=== PATIENT | female | born 1985 | race Caucasian/White ===

== ENCOUNTER → 2018-07-09 | Outpatient (CLI) | payer OTHER ==
[~2018-07-09] MED LIST: CALC250T7 PO; CHOL10005 PO; IOPAMIDOL 76% 100 ML INFUS BTL 100 ML ONE; LEVO-3 PO
--- NOTE | 2018-07-09 11:30 | RADIOLOGY IMAGING REPORT ---
FACILITY: [facility] PATIENT NAME: Vida Camacho : 1985 MR: [id number] V: [id number] EXAM DATE: ORDERING PHYSICIAN: USMAN GREY TECHNOLOGIST: [place] [facility] [place]: Vida Camacho : 1985 Visit/Account:[id number] Date of Sevice: 07/09/2018 EXAMINATION: CT neck with IV contrast HISTORY: Thyroid cancer. Thyroidectomy on 04/09/2018. Prior I 31 ablation. TECHNIQUE: Axial soft tissue neck CT with IV contrast. Sagittal and coronal reformats. One of the following dose optimization techniques was utilized in the performance of this exam: Autom ated exposure control; adjustment of the mA and/or kV according to the patient's size; or use of an i terative reconstruction technique. Specific details can be referenced in the facility's radiology C T exam operational policy. CONTRAST: 75 mL of IV [id number] COMPARISON: None available. FINDINGS: Masses/lesions: Postop thyroidectomy. No suspicious mass in the thyroidectomy bed. Airway: Negative. Lymph nodes: Negative. Vessels: Negative. 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 Visualized orbits / brain / paranasal sinuses: Small cyst or polyp in the right maxillary sinus. Rig htward nasal septal deviation. The included intracranial structures are within normal limits. Upper chest: Negative. IMPRESSION: 1. Postop thyroidectomy with no suspicious mass in the thyroidectomy bed. 2. No enlarged or pathologic-appearing lymph nodes in the neck. 3. 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 4. Small cyst or polyp in the right maxillary sinus. Rightward nasal septal deviation. Report Dictated By: Rogelio Rosales MD at 07/09/2018 11:19 AM Report E-Signed By: Rogelio Rosales MD at 07/09/2018 11:26 AM WSN:[id number]
== END ==
LOC: CT 10:45
PROVIDERS: ATTEND Radiology Radiation Oncology
DX: C73 Malignant neoplasm of thyroid gland (principal)
CPT/HCPCS: 70491; Q9967

== ENCOUNTER 2018-07-14 11:57 | Outpatient (RCR) | payer OTHER ==
[2018-05-12 11:55] VITALS: BP 105/75
--- NOTE | 2018-05-12 17:57 | TOBIN CONSULT ---
EVENT DATE: May 12, 2018 CHIEF COMPLAINT/REASON FOR CONSULTATION Newly diagnosed papillary carcinoma of the thyroid gland, status post total thyroidectomy 04/09/18. Patient is here to discuss adjuvant iodine-131 therapy as an adjunct to surgery. HISTORY This is a pleasant 32-year-old lady who is presently living in [place]. She recently had genetic tests performed as her mother was diagnosed with thyroid carcinoma in her 40s. At that time, her mother was living in the [place] area. She subsequently developed pulmonary metastatic disease and is, fortunately, still alive at this time. Her mother was treated with iodine-131 on at least three occasions and external beam radiation therapy as well as surgery. The patient recently had genetic testing since her mother and grandfather were both positive for genetic mutation. The patient was also positive for genetic mutation with the CHEK2. Patient's primary physician performed a recent exam and was suspicious about the thyroid. The patient then had an ultrasound which demonstrated two hypoechoic nodules in the thyroid. That ultrasound was performed in [place] on 02/11/18. In the right lobe, there as a 0.9 x 0.9 x 1 cm nodule which was irregular. In the isthmus of the thyroid, there was a 0.7 x 0.4 x 0.8 cm small hypoechoic area. There was an incidental cyst noted in the upper pole of the left lobe of the gland. The patient subsequently underwent total thyroidectomy by Dr. Shah at the [facility]. That surgery was performed on 04/09/18. On the final pathology, the patient had a multifocal papillary carcinoma. Largest tumor size was 0.8 cm in the right lobe. Margins were focally involved by carcinoma. Sites of involvement were posterior right lobe (less than 2 mm extent). No angiolymphatic invasion. No gross extrathyroidal extension. No abnormal lymph nodes were palpated. The pathologist states the tumor is pT1a NX. Postoperatively, the patient had no complications. She had laboratory studies last week, and her calcium is normal. At this time, she is about four weeks out from surgery. She is on replacement levothyroxine at 125 mcg q. day with a normal TSH. The patient did have thyroglobulin drawn on 05/08/18, which is significantly elevated at 50 with no antibodies. Thyroglobulin is typically in the less than 5 range at this juncture and should ultimately be less than 2. Patient denies any bone pain. No difficulties with swallowing. No change in voice pattern. Patient has been seen by Dr. Leblanc for endocrinology consultation, and that consultation was on 04/28/18. She is on replacement vitamin D and calcium at this time. She will be scheduled for a thyroid ultrasound from his notes at six months in October 2018. The patient is seen for initial discussion of the pros and cons of adjuvant iodine-131 therapy. MEDICATIONS 1. Levothyroxine 125 mcg q. day. 2. Vitamin D 1000 mg q. day. 3. Calcium 1200 mg q. day. ALLERGIES SULFA. PAST MEDICAL HISTORY Thyroid carcinoma with history listed above. PAST SURGICAL HISTORY 1. Total thyroidectomy 04/09/18. 2. 12/13/07. 3. Cyst removal 1991. FAMILY HISTORY Notable for mother with thyroid cancer and colon cancer. SOCIAL HISTORY Patient is . Her is a family practice resident in [place]. They will be moving to [place] in two to three months. She is a [id number] mother of four children ages 4, 6, 8, and 10. Nonsmoker. COMPREHENSIVE REVIEW OF SYSTEMS Entirely negative. Patient does have an IUD in place. PHYSICAL EXAMINATION GENERAL: Pleasant 32-year-old female, medium build. VITALS: BP 105/75, pulse 77, respirations 16, O2 sat 96%. Weight is 169. NECK: No palpable nodularity in the neck. Well-healed surgical scar. No lymphadenopathy noted. LUNGS: Clear bilaterally. HEART: Sounds regular. No audible murmur. ABDOMEN: Soft. No gross organomegaly. NEUROLOGICAL: Intact. IMPRESSION This is 32-year-old female with an intermediate risk thyroid malignancy. She underwent appropriate total thyroidectomy on 04/09/[address] Shah. The adverse features of the tumor include multifocality and microscopic extension into the posterior right lobe with focal involvement at that site. Her other adverse features are an elevated thyroglobulin protein in the 50 range approximately four weeks remote from surgery. RECOMMENDATIONS I reviewed the NCCN most recent updated recommendations from this past year with the patient. I also went through the possible acute late adverse effects associated with iodine-131 therapy. There are rare case reports of leukemia or salivary gland tumors; however, the relative incidence is extremely low. The treatment is generally well tolerated with minor adverse effects, which may include altered taste, decreased salivary flow, or dry eye, although the latter is fairly uncommon as well. The patient states her mother did have some nausea when she received iodine-131, which is quite unusual. I could easily premedicate her with Zofran to prevent that. I suspect the doses were considerably higher. The appropriate doses at this time are in the 30 mCi to 100 mCi range. I will perform further literature review in the next two weeks given the features of her tumor, which I reviewed today, to decide the appropriate dose. For younger patients, typically we favor the 30 mCi of iodine-131 at this time for lymph node-negative patients. Patient will undergo radiation safety instructions for three to five days following treatment. She will meet with her nuclear medicine staff member within the next three weeks. I will get weekly TSH next and have her stop the levothyroxine therapy in the morning. I suspect she will become appropriately hypothyroid within the next two to four weeks with a TSH target of 30, at which point the iodine-131 will be administered. In general, the literature has supported withdrawal of the levothyroxine over the Thyrogen stimulation at least for initial ablation techniques for higher efficacy. Both are acceptable at this time per present NCCN guidelines, although category 2B. All questions were answered to the patient's satisfaction. I will review the treatment details when the patient returns to the office in approximately 2-1/2 weeks. We will make appropriate arrangements for oncology followup when she moves to the [place] area later this year. Thank you for the referral and excellent notes which accompany the patient today for initial consultation. I will have the patient go over her consent form at her next appointment. She will have a whole body metastases scan approximately 10 days after the administration of iodine-131. I will also request a baseline CT scan of the neck and thorax in June after she has received the iodine-131 therapy. Please do not hesitate to call me if there are any questions regarding the above recommendations. MTDD
[2018-05-26 12:52] VITALS: BP 96/71
--- NOTE | 2018-05-27 00:35 | ONCOLOGY FOLLOW UP NOTE ---
EVENT DATE: May 26, 2018 CHIEF COMPLAINT/REASON FOR VISIT Patient is here to go over the details of the iodine-131 therapy as well as review recent laboratory studies and oncology surveillance plan and final staging testing. ONCOLOGY HISTORY 1. Diagnosis of papillary carcinoma of the thyroid gland, status post total thyroidectomy 04/09/18. 2. Multifocal papillary carcinoma appreciated on final pathology. Margins focally involved by carcinoma. Largest tumor size 0.8 cm in the right lobe. Additional 2 mm tumor appreciated in the posterior aspect of the right lobe. No palpable lymphadenopathy at surgery. Tentative staging pathologic T1a NX MX (whole-body mets scan and lung imaging pending). INTERVAL HISTORY Patient is a pleasant 32-year-old lady who was referred to me by as well as her other specialists. The patient has a family history of thyroid carcinoma on her mother's side, which, unfortunately, was metastatic. Her mother was diagnosed in her 40s. The patient also has a genetic mutation (CHEK2). The patient has been taken off her levothyroxine medication. She clinically is feeling fairly normal at this time. Her TSH elevated to 22 last week, and I would expect this week the TSH to be over 30, so we could schedule administration of iodine-131 on Friday of next week. I reviewed some of the radiation therapy details with the patient and also had her meet with our nuclear medicine specialists to go over radiation precautions in further detail. Patient has made arrangements for isolation for five days following that procedure. I previously had reviewed the NCCN guidelines for the iodine-131 administration and indications; Reviewed the details of iodine-131 dose selection from the present UpToDate literature from 2019. I will proceed with iodine-131 at 50 mcg for this patient (appropriate dose range is 30-50 mCi, since she has microscopic focus at a margin). Patient has been seen by Dr. Leblanc for endocrinology consultation on a previous date, dated 04/28/18, and she is on replacement vitamin D and calcium and will be scheduled for a thyroid ultrasound in October 2018. Patient will be moving to [place] with her later this summer, so I will check with her at a later date and see where she will have her tests performed and assist her with continuity of care. MEDICATIONS 1. Vitamin D 1000 mg a day. 2. Calcium 1200 mg a day. ALLERGIES SULFA. PAST MEDICAL HISTORY Papillary carcinoma of the thyroid gland. PAST SURGICAL HISTORY 1. Total thyroidectomy, 04/09/18. 2. , 12/13/07. 3. Cyst removal, 1991. FAMILY HISTORY Positive for mother with thyroid carcinoma and colon carcinoma. SOCIAL HISTORY Patient is . 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 She is a [id number] mother of four children, ages 4, 6, 8, and 10. Nonsmoker. REVIEW OF SYSTEMS Comprehensive review of systems was updated. No change from previous notes. PHYSICAL EXAMINATION GENERAL: Pleasant 32-year-old female of medium build. VITAL SIGNS: Stable and listed in EMR. LUNGS: Clear bilaterally. No palpable lymphadenopathy or mass in the neck. HEART: Heart sounds regular. ABDOMEN: No gross organomegaly. EXTREMITIES: No edema or cyanosis. NEUROLOGIC: Exam is intact. IMPRESSION Papillary carcinoma of the thyroid gland, status post total thyroidectomy 04/09/18. PLAN 1. Patient will receive iodine-131 administration under my direct supervision next Friday. 2. The patient will have a serum test in [place] on the day prior. 3. Whole-body mets scan will be on the day 10 days after the iodine-131 administration. 4. Baseline neck and chest imaging within the next two to four weeks. 5. Ultrasound study of the neck this fall with serial thyroglobulin tumor markers (probably in [place]). 6. Patient can restart her levothyroxine at 125 mcg daily 72 hours after iodine-131 administration. MTDD
--- NOTE | 2018-06-02 10:38 | PROCEDURE NOTE ---
EVENT DATE: June 02, 2018 PROCEDURE Oral administration of iodine-131 for thyroid remnant ablation following total thyroidectomy. DIAGNOSIS Papillary carcinoma of thyroid gland. PROCEDURE The patient received an oral dose of 48.9 mCi of iodine-131 [place] [facility] [place]. Dr. Boles was a witnessed observer today in the radiology department as well as part of her certification process. The patient has been thoroughly instructed on radiation precautions and has signed consent for the procedure. She received an oral dose of 48.9 mCi in capsule form. She was instructed to call me if she had any adverse reactions. Patient can start replacement levothyroxine at 125 mcg in 72 hours. Patient will have post iodine-131 MET scan in ten days. She elected to do that procedure in [place] since she lives in the [place] area. Patient will be seen in followup in approximately 4 to 5 weeks to review the results of the scans as well as updated laboratory information including thyroglobulin, tumor marker, TSH. Appointment is tentatively scheduled for July 14, 2018. She will have baseline post-treatment radiographic imaging on July 07, 2018 as well of the neck and thorax. JON
--- NOTE | 2018-06-02 11:02 | ONCOLOGY FOLLOW UP NOTE ---
EVENT DATE: June 02, 2018 ONCOLOGY HISTORY 1. Papillary carcinoma of the thyroid gland, status post total thyroidectomy April 09, 2018. 2. On final pathology, the patient had a multi-focal papillary carcinoma. Margins focally involved by carcinoma. Largest tumor size 0.8 cm in the right lobe and additionally 2 cm tumor appreciated in the posterior aspect of the right lobe. No palpable lymphadenopathy at surgery. STAGE T1a NX MX. Whole body MET scan and baseline radiographic imaging at the neck and thorax have been scheduled within the next 1 to 4 weeks. MET scan is scheduled for July 02 at 10 a.[facility]. [facility]. CT scan is scheduled of the neck and thorax on July 07, 2018 at [facility]. Followup appointment with myself is scheduled for July 14, 2018, to review labs and radiographic imaging. Labs will be drawn on July 07, 2018. INTERVAL HISTORY Patient has been made appropriately hypothyroid. TSH reached a peak of 68 this past week. The patient went over radiation precautions seven days ago in the office with myself and Nuclear Medicine staff. The signed consent was obtained at that time. Patient states she is having some expected symptoms of hypothyroidism. These symptoms include a lack of concentration in the afternoon, heat intolerance, minor changes in hair. MEDICATIONS Vitamin D, calcium. ALLERGIES Sulfa. PAST MEDICAL HISTORY Papillary carcinoma of the thyroid gland. PAST SURGICAL HISTORY 1. Total thyroidectomy, April 09, 2018. 2. , December 13, 2007. 3. Cyst removal, 1991. FAMILY HISTORY Positive for mother with thyroid carcinoma and colon carcinoma. SOCIAL HISTORY Patient is . 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 She is a [id number] mother of children, ages 4, 6, 8, and 10. She does not smoke. REVIEW OF SYSTEMS Unchanged except as listed above from prior notes. PHYSICAL EXAMINATION GENERAL: Pleasant 32-year-old female. VITAL SIGNS: Listed in EMR in Nuclear Medicine. LUNGS: Clear bilaterally. No palpable lymphadenopathy in the neck. No mass effect. HEART: Heart sounds regular. ABDOMEN: Soft. No gross organomegaly. IMPRESSION Papillary carcinoma of the thyroid gland, status post total thyroidectomy. Patient had a test appropriately yesterday, which is negative. PLAN Administer iodine-131 this morning and a separate note has been dictated regarding the iodine-131 administration. Patient is instructed to call me if she has any adverse effects. MTDD
[2018-07-09 10:21] VITALS: BP 112/50
[2018-07-09 10:37] LABS: PLATELET COUNT, AUTOMATED 216 K/uL (150-450)
[~2018-07-14 11:57] MED LIST changes: -IOPAMIDOL 76% 100 ML INFUS BTL 100 ML ONE
[2018-07-14 12:05] VITALS: BP 110/76
[2018-07-14] MEDS ORDERED: LEVO-3 PO (13:15)
--- NOTE | 2018-07-15 03:22 | ONCOLOGY FOLLOW UP NOTE ---
EVENT DATE: July 14, 2018 CHIEF COMPLAINT/REASON FOR VISIT Today, patient is here to go over the results of recent laboratory studies and her baseline post-treatment CT scan of the neck. ONCOLOGY HISTORY 1. Papillary carcinoma of the thyroid gland. Status post total thyroidectomy on 04/09/18. 2. Final pathology revealed multifocal papillary carcinoma, largest tumor size 0.8 cm in the right lobe. Margins focally involved by carcinoma (posterior right lobe). No angiolymphatic invasion. No gross extrathyroidal extension. No palpable lymph nodes. Pathologic stage pT1a NX. 3. Patient seen in consultation by Endocrinology with Dr. Leblanc on 04/28/18. Patient instructed to consider iodine-131 therapy, which was subsequently administered under my direction at [facility]. INTERVAL HISTORY Patient is clinically doing well. She is now on replacement levothyroxine at 125 mcg daily. She does have some minor fatigue. She states she is swallowing fairly normally, although at times she can feel a small catch sensation in the neck. Overall, she has a good voice and sings in the choir. Patient had a recent CT scan of the neck with IV contrast, which I reviewed with her on the computer. This was negative for any suspicious lymphadenopathy or mass. Patient's most recent laboratory studies include a thyroglobulin tumor protein, which is 0.1 ng/mL. TSH is 1.69, on replacement levothyroxine of 125 mcg daily. This is slightly high, as our target value will be 0.1 to 0.5 ng/mL. MEDICATIONS 1. Levothyroxine 1.5 mcg daily (increased to 150 mcg daily after our visit). 2. Calcium 600 mg daily. 3. Vitamin D3. ALLERGIES 1. SULFA. 2. NITROFURANTOIN. PAST MEDICAL HISTORY Thyroid carcinoma with history listed above. PAST SURGICAL HISTORY 1. Total thyroidectomy, 04/09/18 (Dr. Shah). 2. , 12/13/07. 3. Cyst removal, 1991. 4. Blue nevus removal, 06/2018, left forearm. FAMILY HISTORY Notable for a brother who had thyroid carcinoma and colon carcinoma. SOCIAL HISTORY Patient is . 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 They will be moving to [place] in two to three months. [id number] mother with four children, ages 4, 6, 8, and 10. Nonsmoker. REVIEW OF SYSTEMS Comprehensive review of systems negative with the exception of symptoms listed in the HPI. PHYSICAL EXAMINATION GENERAL: A pleasant 32-year-old female, alert and cooperative. Karnofsky Performance Status 90. VITAL SIGNS: BP 110/76, pulse 69, respirations 16, temperature 98.1, O2 saturation 96% on room air, weight 169. HEENT: Essentially unremarkable. No palpable lymphadenopathy of the neck or any suspicious mass. LUNGS: Clear bilaterally. CARDIOVASCULAR: Heart sounds regular. No audible murmur. ABDOMEN: Soft. No gross organomegaly. EXTREMITIES: No edema or cyanosis. NEUROLOGIC: Exam is intact. IMPRESSION This is a 32-year-old lady who was recently diagnosed with papillary carcinoma of the thyroid gland. She had total thyroidectomy performed and was found to have multifocal tumor. The patient has a positive genetic history for genetic mutation with the CHEK2 gene. She had a focal involvement of a margin at the time of surgery. Her postoperative thyroglobulin tumor protein was 50. We elected to proceed with iodine-131 therapy. Details are listed in the [facility] chart. She was started on replacement levothyroxine after 72 hours. Patient experiencing some minor fatigue, and she can now increase her levothyroxine from 125 mcg daily to 150 mcg daily to achieve target TSH value of 0.1 to 0.5. I went over the present NCCN guidelines with the patient in terms of her management. She should have a thyroid ultrasound in October 2018, which was the recommendation of Dr. Leblanc. She should have a thyroglobulin marker and TSH every six months for the next five years with further radiographic studies and investigation if there is any significant elevation above 2 in the thyroglobulin tumor protein. All questions were answered to the patient's satisfaction. She will be released from the radiation oncology clinic, and she will make contact with new providers when they move to [place] in the next two months. The patient should be followed by an salesperson florist supplies, in my opinion, who can assist her with the management of levothyroxine dosing and any symptoms she may be experiencing. I told her I would be happy to see her in the future if she had any questions or concerns, and alternatively she could also contact me by phone at any time. She was instructed to have a followup TSH obtained in approximately six weeks. Patient was also given a copy of her labs and radiographic studies to take with her today. She was also instructed per present recommendations to take 1200 mg of calcium with vitamin D daily and to regularly exercise per present guidelines. JON
== END 2018-08-09 ==
LOC: RAON 11:57
PROVIDERS: ATTEND Radiology Radiation Oncology
DX: C73 Malignant neoplasm of thyroid gland (principal); E89.0 Postprocedural hypothyroidism; Z79.899 Other long term (current) drug therapy
CPT/HCPCS: 36415; 79005; 82040; 82247; 82310; 82374; 82435; 82565; 82947; 84075; 84132; 84155; 84295; 84432; 84443; 84450; 84460; 84520; 85025; 86800; 99202; 99212; A9517; A9528